=== PATIENT | female | born 1995 | race Caucasian/White ===

== ENCOUNTER 2019-09-18 12:02 | Emergency (ER) | payer OTHER, SELFPAY ==
[2019-09-18 12:12] VITALS: BP 115/69; PULSE 104; RESP 16; TEMP 37.2; O2SAT 99
--- NOTE | 2019-09-18 12:23 | ED.GENADULT ---
HPI - General Adult General Chief complaint: Ear Stated complaint: Poss ear infection Time Seen by Provider: 09/18/19 12:23 Source: patient and RN notes reviewed Mode of arrival: ambulatory Limitations: no limitations History of Present Illness HPI narrative: 23-year-old female presents with mother (ok to speak freely). Linda complaints of upper respiratory infection, facial congestion, facial pain, cough, LT ear pain, and intermittent headaches (not the worst of her life) for the past 14 days. Nyquil, Advil sinus, Tylenol, and lfcw-lta-xuwslxv ears drops (last used 3 days ago) with little to no relief. No facial swelling. No cough or chest congestion. Nasal congestion. No rhinorrhea. No chest pain or shortness of breath. No exacerbating factors. Denies fever or chills. Denies nausea, vomiting, and abdominal pain. Tolerating po intake well. Remains active. Linda denies being , LMP 2 weeks ago Some parts of this dictation were generated by voice recognition software and may contain typographical and/or grammatical inaccuracies. Related Data Allergies Allergy/AdvReac Type Severity Reaction Status Date / Time No Known Allergies Allergy Verified 09/18/19 12:19 Review of Systems Review of Systems: Narrative: CONSTITUTIONAL: Denies fever, chills, sweats. EYES: Denies visual changes, redness, discharge. ENT: Complains of congestion, facial congestion and pressure, LT otalgia. Denies sore throat, rhinorrhea CARDIOVASCULAR: Denies chest pain, palpitations, edema. RESPIRATORY: Denies dyspnea, wheezing, cough. GASTROINTESTINAL: Denies abdominal pain, nausea, vomiting, diarrhea. GENITOURINARY: Denies dysuria, hematuria, abnormal discharge SKIN: Denies rash or itching. MUSCULOSKELETAL: Denies acute back pain, joint pain, or myalgia. NEUROLOGIC: Denies numbness or focal weakness. Complains of intermittent MÁRQUEZ. PSYCHIATRIC: Denies anxiety or depression. PMFSH Comments At time of signature, agree with nurse past medical, surgical, social, and family history. There is no relevant family history pertinent to the presenting complaint. Exam Narrative: Exam Narrative: GENERAL: This is a well-nourished, well-developed patient, in no apparent distress. Talks in full sentences and ambulates with steady gait without dyspnea. HEAD: normocephalic, atraumatic. EYES: PERRL. Sclera clear/white. Vision is grossly intact. EARS: Pinna is normal shape and contour. LT ear with moderate erythema, mild swelling canal, and moderate tenderness with manipulation. No discharge. Clear external auditory canals. TMs pearly monaco with good cone of light, no erythema or suppuration. No gross hearing deficit. NOSE: External nose normal with no obvious nasal discharge, nares with mild redness and enlarged turbinates, clear rhinorrhea. SINUSES: Mild-moderate tenderness upon palpation to maxillary and frontal sinuses. MOUTH: Moist mucous membranes. Geographic tongue. THROAT: Mucous membranes moist, posterior pharynx clear. PND, mild erythema, and tonsils normal. NECK: Neck supple, non-tender without lymphadenopathy, masses or thyromegaly. CARDIOVASCULAR: Regular rate and rhythm without murmurs, gallops, or rubs. RESPIRATORY: Clear to auscultation. Breath sounds equal bilaterally. No wheezes, rales, or rhonchi. GASTROINTESTINAL: Abdomen soft, non-tender, nondistended. Bowel sounds are active. No hepato-splenomegaly, or palpable masses. No guarding. SKIN: warm, intact with no suspicious lesions or rash, good texture and turgor. NEURO: awake, alert, and oriented to person, place and time. There were no obvious focal neurologic abnormalities. EXTREMITIES: No clubbing, cyanosis, or edema. BACK: Nontender without deformity or crepitance. No flank tenderness. Huntington Coma Scale Eye Opening: Spontaneous 4 Lobo Coma Scale Motor: Obeys Commands 6 Huntington Coma Scale Verbal: Oriented 5 Course Vital Signs Vital signs: Vital Signs Temperature 37.2 C 0
[2019-09-18 12:45] VITALS: PULSE 80
== END 2019-09-18 12:45 | disposition home or self-care (01) ==
PROVIDERS: Emergency Provider Nurse Practitioner Family; PCP Family Medicine
DX: H60.92 Unspecified otitis externa, left ear (principal); J32.9 Chronic sinusitis, unspecified
CPT/HCPCS: 99213; G0463

== ENCOUNTER 2021-03-24 17:07 | Emergency (ER) | payer OTHER, SELFPAY ==
[2021-03-24 17:10] VITALS: BP 144/73; PULSE 85; RESP 20; TEMP 36.8; O2SAT 99
[2021-03-24 17:15] VITALS: BP 130/63; PULSE 88; RESP 20; TEMP 37.7; O2SAT 98
--- NOTE | 2021-03-24 17:36 | ED.URI ---
HPI - URI/Sore Throat General Chief Complaint: Upper Respiratory Infection Stated Complaint: sore throat Time Seen by Provider: 03/24/21 17:36 Source: patient and family History of Present Illness HPI Narrative: patient presents with sinus congestion and drainage sore throat. patient is immunized for covid and does not wish to be tested for covid today. educated onrational of covid testing. MD elicited complaint: sore throat Related Data Allergies Allergy/AdvReac Type Severity Reaction Status Date / Time No Known Allergies Allergy Verified 03/24/21 17:29 Review of Systems Review of Systems: CONSTITUTIONAL: Denies chills, or sweats. Reports fever and generalized body aches EYES: Denies visual changes, redness, or discharge. ENT: Denies otalgia. Reports nasal congestion runny nose and sore throat CARDIOVASCULAR: Denies chest pain, palpitations, or edema. RESPIRATORY: Denies dyspnea. Reports occasional cough GASTROINTESTINAL: Denies abdominal pain, nausea, vomiting, or diarrhea. GENITOURINARY: Denies dysuria or hematuria. SKIN: Denies rash or itching. MUSCULOSKELETAL: Denies back pain, joint pain, or myalgia. Reports generalized body aches NEUROLOGIC: Denies headache, numbness, or weakness. PSYCHIATRIC: Denies anxiety or depression. [facility] Family History Family History (System 10/01/20 @ 12:23 by Marissa Mayfield) Grandparent Family history of malignant neoplasm Social History Social History (System 10/01/20 @ 12:23 by Marissa Mayfield) Smoking status: Never smoker Alcohol intake: never Comments At time of signature, agree with nursing past medical, surgical, social and family history. There is no relevant family history pertinent to the presenting complaint Exam Narrative: The patient is a well-developed, well-nourished in no acute distress. SKIN: Skin is warm and dry without erythema, swelling or exudate. There is good turgor. No tenting. HEAD: Atraumatic. Normocephalic. No temporal or scalp tenderness. EYES: Moist and bright. Sclera and conjunctivae normal. No discharge. PERRLA. Extraocular motions intact. Gross visual acuity intact. EARS: Pinna is normal shape and contour. Clear external auditory canals. TM pearly monaco with good cone of light, no erythema or suppuration. Bilateral cerumen noted no gross hearing deficit. NOSE: pink, moist mucosa with good air movement. Clear rhinorrhea without nasal flaring. Septum midline. Mouth: moist mucous membranes. THROAT; mild erythema noted to posterior oropharynx with moderate postnasal drainage. Without exudate or ulceration.. Uvula midline. Normal movement of soft palate. NECK: Supple and nontender with full range of motion without discomfort. No meningeal signs. LUNGS: Equal and bilateral breath sounds without wheezes, rales or rhonchi. CHEST: The chest wall is without retractions or use of accessory muscles. HEART: Has a regular rate and rhythm without murmur, gallops, click or rub. ABDOMEN: Soft, nontender with positive active bowel sounds. No rebound tenderness. EXTREMITIES: Without cyanosis, clubbing or edema. Equal 2+ distal pulses and 2 second capillary refill noted. NEUROLOGIC: alert, active, . The patient moves all extremities with normal muscle strength. Normal muscle tone is noted. Normal coordination is noted. NO focal neurological findings noted. Course Vital Signs Vital signs: Vital Signs Temperature 36.8 C 03/24/21 17:10 Pulse Rate 85 03/24/21 17:10 Respiratory Rate 20 03/24/21 17:10 Blood Pressure 144/73 H 03/24/21 17:10 Pulse Oximetry 99 03/24/21 17:10 Temperature 37.7 C H 03/24/21 17:15 Pulse Rate 88 03/24/21 17:15 Respiratory Rate 20 03/24/21 17:15 Blood Pressure 130/63 03/24/21 17:15 Pulse Oximetry 98 03/24/21 17:15 Addressed elevated BP today. Today's blood pressure higher than recommended range. Discussed importance of follow -up with PCP and possible fdc effects/cardiovascular events re
== END 2021-03-24 17:45 | disposition home or self-care (01) ==
PROVIDERS: Emergency Provider Nurse Practitioner Family; PCP Family Medicine
DX: J06.9 Acute upper respiratory infection, unspecified (principal); J20.9 Acute bronchitis, unspecified; F41.9 Anxiety disorder, unspecified
CPT/HCPCS: 87081; 87880; 99213; G0463

== ENCOUNTER → 2023-02-15 08:13 | Outpatient (CLI) | payer OTHER, SELFPAY ==
--- NOTE | ~2023-02-15 | MR_ITS ---
MRI of the right knee Clinical history: Pain Technique: Coronal proton density and proton density-weighted images, sagittal proton-density and T2 fat-sat images, and axial proton-density fat-saturated images were acquired. Findings: Anterior and posterior cruciate ligaments are intact. Medial collateral ligament and the la teral collateral ligament complex are intact. Popliteus tendon is intact. Medial and lateral menisci are intact, without evidence of tear. Articular cartilage is well preserved throughout the knee. Bone marrow signals are unremarkable. Exte nsor mechanism is intact. There is mild edema of the quadriceps fat pad. No joint effusion or Le's cyst. Impression: Mild edema of the quadriceps fat pad. Findings could reflect impingement. No other significant findings. Reviewed, dictated and finalized at location . Impression: Mild edema of the quadriceps fat pad. Findings could reflect impingement. No other significant findings.
== END ==
PROVIDERS: PCP Family Medicine; Visit Provider Orthopaedic Surgery
DX: M25.561 Pain in right knee (principal)
CPT/HCPCS: 73721

== ENCOUNTER 2023-04-11 18:13 | Emergency (ER) | payer OTHER, SELFPAY ==
--- NOTE | ~2023-04-11 | CT_ITS ---
EXAMINATION: CT brain wo con INDICATION: Diffuse paresthesias COMPARISON: None TECHNIQUE: Standard unenhanced head CT. The dose-length product (DLP) was 605.33 mGy-cm. The mA was a djusted according to patient size. Iterative reconstruction technique was employed. FINDINGS: No intracranial hemorrhage, acute infarction, or abnormal mass lesion. The ventricles are n ormal. No abnormal mass effect or midline shift. The engel-white matter differentiation is normal. The basal cisterns are patent. The orbits are normal. The paranasal sinuses, mastoids and calvarium are normal. IMPRESSION: 1. No acute intracranial abnormality. Reviewed, dictated and finalized at location F.
[2023-04-11 18:16] VITALS: BP 126/78; PULSE 84; RESP 16; TEMP 36.2; O2SAT 100
--- NOTE | 2023-04-11 19:06 | ED.GENADULT ---
HPI - General Adult General Chief complaint: Unspecified Stated complaint: numbness to entire body Time Seen by Provider: 04/11/23 19:07 History of Present Illness HPI narrative: Patient 47-year-old female who presents the emergency department with chief complaint of paresthesias. The patient states that for the last month she has been having some numbness initially started around her mouth approximately a month ago the patient states complaint. She grew progressively numbness over her entire body patient reports she was seen in urgent care was told that she might have a sinus infection was treated with antibiotics patient then followed up with her primary care provider who started her back on a SSRI patient reports no focal motor deficits does report that she has been continuing to have the symptoms over her entire body at least 2 patient denies fever denies nuchal rigidity patient muscle rigidity patient reports has been eating and drinking okay Related Data Allergies Allergy/AdvReac Type Severity Reaction Status Date / Time No Known Allergies Allergy Verified 04/11/23 20:08 Review of Systems Review of Systems: A 10 system review of systems was completed on the patient and is negative except for what is stated in the HPI. Nursing and ancillary documentation was reviewed. [facility] Family History Family History Grandparent Family history of malignant neoplasm Social History Social History Smoking status: Never smoker Lack of Transportation: No Lack of Food: Never True Current Housing: I Have Housing Concerned About Future Housing: No Difficulty Paying Gas/Electric Bills: No Difficulty Paying for Meds: No Currently Unemployed: No Education: High School Diploma/GED Difficulty w/ Childcare or Family Care: No Exam Narrative: GENERAL: Well-appearing, well-nourished, and in no acute distress. HEAD: Normocephalic, atraumatic. EYES: PERRLA and EOMI. ENT: Nares clear, no rhinorrhea or epistaxis. Mucous membranes moist. NECK: Supple. CHEST: Clear to auscultation. No respiratory distress. HEART: Regular rate and rhythm. No murmur heard. Normal peripheral pulses. ABDOMEN: Soft, nontender, nondistended, normal active bowel sounds. EXTREMITIES: Normal range of motion. No edema. SKIN: Warm, dry, no rash. NEURO: No focal deficits. Alert and oriented x3. Good strength in all extremities GCS 15 intact sensation PSYCH: Normal mood and affect. Course Vital Signs Vital signs: Vital Signs Temperature 36.2 C L 04/11/23 18:16 Pulse Rate 84 04/11/23 18:16 Respiratory Rate 16 04/11/23 18:16 Blood Pressure 126/78 04/11/23 18:16 Pulse Oximetry 100 04/11/23 18:16 Oxygen Delivery Room Air 04/11/23 18:16 Temperature 36.2 C L 04/11/23 18:16 Pulse Rate 91 04/11/23 20:07 Respiratory Rate 17 04/11/23 20:07 Blood Pressure 104/65 04/11/23 20:07 Pulse Oximetry 100 04/11/23 20:07 Oxygen Delivery Room Air 04/11/23 18:16 Medical Decision Making MDM Narrative Medical decision making narrative: Differential diagnosis includes electrolyte abnormality space-occupying lesion. Dehydration medication side effect Laboratory studies were obtained on the patient which showed a normal CBC with a white count of 12.4 electrolytes within normal limits sodium was 135 potassium was 3.5 renal function BUN was 11 creatinine 0.6 magnesium was 2.2 liver enzymes are within normal limits urinalysis was also normal CT head showed no acute abnormality Patient has been having symptoms for over a month at this time is felt the patient does not show signs of acute CVA. The patient will be referred back to her primary care provider for further work-up and evaluation Vital Signs Vital Signs: Vital Signs Temperature 36.2 C L 04/11/23 18:16 Pulse Rate 84
[2023-04-11 20:07] VITALS: BP 104/65; PULSE 91; RESP 17; O2SAT 100
[2023-04-11 20:12] LABS: Basophils Percent Auto 0.3 % (0.2-1.2); Eosinophils Absolute Auto 0.2 K/mm3 (0-0.3); Eosinophils Percent Auto 1.5 % (0-4.4); Hematocrit 45.9 % (37.0-47.0); Hemoglobin 14.4 g/dL (12.0-15.0); Immature Granulocyte Absolute 0.06 K/mm3 (0.00-0.031); Immature Granulocyte Percent A 0.5 % (0-0.5); Lymphocytes Absolute Auto 2.56 K/mm3 (0.9-3.2); Lymphocytes Percent Auto 20.7 % (18.3-44.2); Mean Corpuscular HGB Conc 31.4 g/dl (32-36); Mean Corpuscular Hemoglobin 27.3 pg (26-34); Mean Corpuscular Volume 87.1 fl (80-100); Mean Platelet Volume 10.7 fl (7.4-10.4); Monocytes Absolute Auto 0.9 K/mm3 (0.1-0.6); Monocytes Percent Auto 7.2 % (2.6-8.5); Neutrophils Absolute Auto 8.7 K/mm3 (1.3-6.7); Neutrophils Percent Auto 69.8 % (45.5-73.1); Platelet Count Result 232 k/mm3 (150-375); Red Blood Count 5.27 M/mm3 (4.2-5.4); Red Cell Distribution Width 12.5 % (11.5-14.5); White Blood Count 12.4 K/mm3 (4.5-10.0)
[2023-04-11 20:27] LABS: Alanine Aminotransferase 19 U/L (6-35); Albumin Level 4.8 g/dL (3.5-5.1); Alkaline Phosphatase 72 U/L (38-126); Anion Gap 7 mmol/L (8-16); Aspartate Amino Transferase 20 U/L (14-36); Bilirubin,Total 0.2 mg/dL (0.2-1.3); Blood Urea Nitrogen 11 mg/dL (7-17); Calcium 9.6 mg/dL (8.4-10.2); Carbon Dioxide 27 mmol/L (22-30); Chloride 101 mmol/L (98-107); Estimated CRCL calculation 87 ml/min; Estimated Glomerular Filt Rate > 60; Glucose 101 mg/dL (65-110); Magnesium 2.2 mg/dL (1.6-2.3); Potassium 3.5 mmol/L (3.4-5.0); Sodium 135 mmol/L (137-145)
[2023-04-11 20:41] LABS: Appearance Urine Clear (Clear); Bilirubin Urine Negative (Negative); Blood Urine Negative (Negative); Color Urine Yellow (Yellow); Glucose Urine UA Negative (Negative); Ketones Urine Negative (Negative); Leukocyte Esterase Ur Negative LEU/UL (Negative); Nitrate Urine Negative (Negative); Protein Urine Negative (Negative); Specific Grav Ur 1.009 (1.001-1.035); Urobilinogen Urine 0.2 mg/dL (<2.0); pH Urine 7.5 (5.0-9.0)
[2023-04-11 20:44] LABS: Add Urine Microscopic? NO
[2023-04-11] MEDS: LORazepam (*CRX) 1 MG TABLET PO (21:27)
== END 2023-04-11 21:35 | disposition home or self-care (01) ==
PROVIDERS: Emergency Provider Emergency Medicine; PCP Family Medicine
DX: R20.2 Paresthesia of skin (principal)
CPT/HCPCS: 36415; 70450; 80053; 81003; 81025; 83735; 85025; 99284; A9270